=== PATIENT | male | born 1950 | race African-American/Black ===

== ENCOUNTER 2018-09-26 17:38 | Emergency (ER) | payer MEDICARE, OTHER ==
[~2018-09-26] VITALS: Ht 180.3 cm; Wt 55.0 kg
[~2018-09-26 17:38] MED LIST: ABAC1TAB15 PO; ALBU17AE16 IH; ALBU8HFA IH; AMLO-511 PO; ASCO500 PO; CYAN100T37 PO; FLUC200T PO; LEVAHFA IH; MONT10TA21 PO; MULT-1290 PO
[2018-09-26] MEDS ORDERED: TAMS0.4C32 PO (19:19)
[2018-09-26] MEDS ORDERED: APIX5TAB PO (19:19)
[2018-09-26] MEDS ORDERED: SYMB8060 IH (19:19)
[2018-09-26] MEDS ORDERED: IPRATROPIUM BROMIDE 0.5 MG/2.5 ML NEB SOLUTION NEB ONE (19:45)
[2018-09-26] MEDS ORDERED: LEVALBUTEROL HCL 1.25 MG/0.5 ML NEB SOLUTION NEB ONE (19:45)
[2018-09-26] MEDS ORDERED: DEXAMETHASONE SOD PHOS 4 MG/ML 5 ML VIAL IM ONE (19:45)
[2018-09-26 22:01] VITALS: BP 132/78
== END 2018-09-26 22:04 | disposition home or self-care (01) ==
LOC: EMS 17:38
DX: J45.909 Unspecified asthma, uncomplicated (principal); I11.9 Hypertensive heart disease without heart failure; F17.210 Nicotine dependence, cigarettes, uncomplicated; F12.90 Cannabis use, unspecified, uncomplicated
CPT/HCPCS: 71045; 94640; 96372; 99283; J1100

== ENCOUNTER 2019-07-30 01:48 | Emergency (ER) | payer MEDICARE, OTHER ==
[~2019-07-30] VITALS: Ht 182.9 cm; Wt 52.0 kg
[~2019-07-30 01:48] MED LIST changes: -ALBU17AE16 IH; -ALBU8HFA IH; -AMLO-511 PO; +AMLO10TA7 PO; +APIX5TAB PO; -ASCO500 PO; -CYAN100T37 PO; +DRON2.5C19 PO; +FERR-89 PO; -LEVAHFA IH; -MULT-1290 PO; +MULT1TAB70 PO; +RISP1 PO; +SYMB8060 IH; +TAMS-13 PO
[2019-07-30] MEDS ORDERED: 0.9% SODIUM CHLORIDE 5 ML NEB SOLUTION NEB ONE (01:54)
[2019-07-30] MEDS ORDERED: IPRATROPIUM BROMIDE 0.5 MG/2.5 ML NEB SOLUTION NEB ONE ×2 (01:54→02:15)
[2019-07-30] MEDS ORDERED: ALBUTEROL SULFATE 5 MG/ML 20 ML NEB SOLN [BULK] NEB ONE ×2 (01:54→02:15)
[2019-07-30] MEDS ORDERED: AMLO10TA55 PO (02:05)
[2019-07-30] MEDS ORDERED: MethylPREDNISolone SOD SUCC 125 MG/2 ML VIAL IVP ONE (02:15)
[2019-07-30] MEDS ORDERED: HydrALAZINE HCL 20 MG/ML VIAL IVP ONE (02:15)
[2019-07-30] MEDS ORDERED: LORazepam 2 MG/ML VIAL IVP ONE (02:15)
[2019-07-30 02:51] LABS: BASOPHILS % (AUTO) 0.7 % (0.0-2.0); HEMATOCRIT 38.5 % (41-53); LYMPHOCYTES % (AUTO) 28.3 % (22.0-44.0); MEAN CORPUSCULAR HEMOGLOBIN 24.2 pg (26.0-34.0); MEAN CORPUSCULAR HGB CONC 31.2 G/dL (31.0-37.0); MEAN CORPUSCULAR VOLUME 78 fL (80-100); MONOCYTES # (AUTO) 0.7 K/uL (0.1-1.0); MONOCYTES % (AUTO) 9.4 % (2.0-9.0); NEUTROPHILS # (AUTO) 3.9 K/uL (1.8-7.7); NEUTROPHILS % (AUTO) 54.6 % (40.0-70.0); PLATELET COUNT (AUTO) 297 K/uL (150-450); RED BLOOD CELL COUNT(AUTO) 4.96 MIL/uL (4.50-5.90); RED CELL DISTRIBUTION WIDTH 16.9 % (11.5-14.5)
[2019-07-30 03:05] LABS: APPEARANCE,URINE CLEAR (CLEAR); BILIRUBIN,URINE NEGATIVE (NEGATIVE); GLUCOSE, URINE (UA) 100 mg/dL (NEGATIVE); KETONES,URINE NEGATIVE (NEGATIVE); LEUKOCYTE ESTERASE ,URINE NEGATIVE (NEGATIVE); NITRATE,URINE NEGATIVE (NEGATIVE); OCCULT BLOOD,URINE MODERATE (NEGATIVE); PROTEIN,URINE SEE CONFIRM (NEGATIVE); UROBILINOGEN,URINE 0.2 mg/dL (<=1.0)
[2019-07-30 03:21] LABS: ANION GAP 11 mmol/L (8-16); CALCIUM, TOTAL 8.9 mg/dL (8.8-10.5); CARBON DIOXIDE 24 mmol/L (22-29); CHLORIDE 105 mmol/L (98-107); CREATININE 1.21 mg/dL (0.60-1.30); GLOMERULAR FILTR. RATE CALC > 60 mL/min (>60); GLUCOSE,RANDOM 154 mg/dL (70-110); POTASSIUM 4.1 mmol/L (3.5-5.1); SODIUM SERUM 140 mmol/L (136-145); UREA NITROGEN, BLOOD 20 mg/dL (7-18)
[2019-07-30 03:24] LABS: BACTERIA,URINE None Seen /HPF (None Seen); SQUAMOUS EPITHELIAL CELL,UR Rare /LPF (None Seen)
[2019-07-30 03:24] LABS: INR 0.9 (0.9-1.1); PROTHROMBIN TIME 9.4 SEC (9.4-11.6)
[2019-07-30 03:25] LABS: SULFOSALICYLIC ACID,URINE 4+ (Negative)
[2019-07-30 03:39] LABS: B-TYPE NATRIURETIC PEPTIDE 18 pg/mL (0-100)
[2019-07-30 03:45] LABS: ALANINE AMINOTRANSFERASE 15 U/L (12-78); ALBUMIN 3.6 g/dL (3.4-5.0); ALKALINE PHOSPHATASE 129 U/L (46-116); ASPARTATE AMINOTRANSFERASE 22 U/L (15-37); BILIRUBIN,TOTAL 0.1 mg/dL (0.1-1.0); CREATINE KINASE, TOTAL ONLY 781 U/L (39-308); TOTAL PROTEIN, SERUM 8.8 g/dL (6.4-8.2)
[2019-07-30] MEDS ORDERED: 0.9% SODIUM CHLORIDE 10 ML SYRINGE IVP PRN ×2 (04:00→08:15)
[2019-07-30] MEDS ORDERED: ONDANSETRON HCL 4 MG/2 ML VIAL IVP PRN ×2 (04:00→08:15)
[2019-07-30] MEDS ORDERED: ACETAMINOPHEN 325 MG TABLET PO PRN ×2 (04:00→08:15)
[2019-07-30] MEDS ORDERED: ALBUTEROL SULFATE 2.5 MG/0.5 ML NEB SOLUTION NEB SCH ×2 (07:00→14:00)
[2019-07-30] MEDS ORDERED: IPRATROPIUM BROMIDE 0.5 MG/2.5 ML NEB SOLUTION NEB SCH ×2 (07:00→14:00)
[2019-07-30] MEDS ORDERED: AZITHROMYCIN 500 MG/NS 250 ML IV ONE (08:15)
[2019-07-30] MEDS ORDERED: INSULIN LISPRO 100 UNITS/ML SQ PRN (08:15)
[2019-07-30] MEDS ORDERED: ALBUTEROL SULFATE 2.5 MG/0.5 ML NEB SOLUTION NEB PRN (08:15)
[2019-07-30] MEDS ORDERED: IPRATROPIUM BROMIDE 0.5 MG/2.5 ML NEB SOLUTION NEB PRN (08:15)
[2019-07-30] MEDS ORDERED: DEXTROSE 50%-WATER 25 GM/50 ML SYRINGE IVP PRN (08:15)
[2019-07-30] MEDS ORDERED: POTASSIUM CHLORIDE 20 MEQ ER TABLET PO PRN (08:15)
[2019-07-30] MEDS ORDERED: MAGNESIUM SULFATE 2 GM/WATER 50 ML IV PRN (08:15)
[2019-07-30] MEDS ORDERED: MAGNESIUM SULFATE 4 GM/WATER 100 ML IV PRN (08:15)
[2019-07-30] MEDS ORDERED: FERROUS SULFATE 325 MG EC TABLET PO SCH (08:15)
[2019-07-30] MEDS ORDERED: POTASSIUM CHL 10 MEQ/WATER 50 ML IV PRN (08:15)
[2019-07-30] MEDS ORDERED: MAGNESIUM OXIDE 400 MG TABLET PO PRN (08:15)
[2019-07-30] MEDS ORDERED: ZOLPIDEM TARTRATE 5 MG TABLET PO PRN (08:15)
[2019-07-30] MEDS ORDERED: BUDESONIDE/FORMOTEROL FUMARATE 80-4.5 MCG/PUFF 6.9 GM INHALER IH SCH (09:00)
[2019-07-30] MEDS ORDERED: PANTOPRAZOLE SODIUM 40 MG DR TABLET PO SCH (09:00)
[2019-07-30] MEDS ORDERED: APIXABAN 5 MG TABLET PO SCH (09:00)
[2019-07-30] MEDS ORDERED: FLUCONAZOLE 200 MG TABLET PO SCH (09:00)
[2019-07-30] MEDS ORDERED: TAMSULOSIN HCL 0.4 MG CAPSULE PO SCH (09:00)
[2019-07-30] MEDS ORDERED: MONTELUKAST SODIUM 10 MG TABLET PO SCH (09:00)
[2019-07-30] MEDS ORDERED: RisperiDONE 1 MG TABLET PO SCH (09:00)
[2019-07-30] MEDS ORDERED: MethylPREDNISolone SOD SUCC 40 MG/ML VIAL IVP SCH (09:00)
[2019-07-30] MEDS ORDERED: DOCUSATE SODIUM 100 MG CAPSULE PO SCH (09:00)
[2019-07-30] MEDS ORDERED: AmLODIPine BESYLATE 10 MG TABLET PO SCH (09:00)
[2019-07-30 11:39] VITALS: BP 138/84
[2019-07-30 11:54] LABS: GLUCOSE,POINT OF CARE 117 MG/DL (70-110)
[2019-07-30] MEDS ORDERED: DOLUTEGRAVIR SODIUM 50 MG TABLET PO SCH (15:30)
[2019-07-30] MEDS ORDERED: MULTIVITAMINS, THERAPEUTIC TABLET PO SCH (15:30)
[2019-07-30] MEDS ORDERED: ABACAVIR SULFATE 300 MG TABLET PO SCH (15:30)
[2019-07-31] MEDS ORDERED: CefTRIAXone 1 GM/DEXTROSE 50 ML IV SCH (08:00)
== END 2019-07-30 15:33 | disposition left against medical advice (07) ==
LOC: EMS 01:49
DX: J96.91 Respiratory failure, unspecified with hypoxia (principal); R80.9 Proteinuria, unspecified; I10 Essential (primary) hypertension; F10.20 Alcohol dependence, uncomplicated; M19.90 Unspecified osteoarthritis, unspecified site; J44.9 Chronic obstructive pulmonary disease, unspecified; Z86.718 Personal history of other venous thrombosis and embolism; M81.0 Age-related osteoporosis without current pathological fracture; Z98.890 Other specified postprocedural states; Z79.899 Other long term (current) drug therapy; F17.210 Nicotine dependence, cigarettes, uncomplicated; F12.90 Cannabis use, unspecified, uncomplicated
CPT/HCPCS: 36415; 71045; 80053; 81001; 82040; 82550; 82962; 83880; 84484; 85025; 85610; 85730; 87040; 87086; 93005; 94640; 94644; 94660; 96365; 96374; 96375; 99291; J0456; J2060; J2920; J2930

== ENCOUNTER 2020-04-28 08:46 | Emergency (ER) | payer MEDICARE, OTHER ==
[~2020-04-28] VITALS: Ht 182.9 cm; Wt 56.8 kg
[~2020-04-28 08:46] MED LIST changes: +AMLO-258 PO; -AMLO10TA7 PO; +MONT-35 PO; -MONT10TA21 PO; +MULT-660 PO; -MULT1TAB70 PO; -RISP1 PO; +RISP1TAB27 PO
[2020-04-28] MEDS ORDERED: ACETAMINOPHEN 500 MG TABLET PO ONE (10:30)
[2020-04-28] MEDS ORDERED: HYDROCODONE/ACETAMINOPHEN 5-325 MG TABLET PO ONE (10:45)
[2020-04-28 10:46] VITALS: BP 158/89
== END 2020-04-28 11:17 | disposition home or self-care (01) ==
LOC: EMS 08:54
DX: S52.202A Unspecified fracture of shaft of left ulna, initial encounter for closed fracture (principal); M17.0 Bilateral primary osteoarthritis of knee; J45.909 Unspecified asthma, uncomplicated; I11.9 Hypertensive heart disease without heart failure; F17.210 Nicotine dependence, cigarettes, uncomplicated; F12.90 Cannabis use, unspecified, uncomplicated; W19.XXXA Unspecified fall, initial encounter; Y93.89 Activity, other specified; Y92.89 Other specified places as the place of occurrence of the external cause; Y99.8 Other external cause status
CPT/HCPCS: 73090-TC; 73110-TC; 73562-TC; Z7502; Z7610

== ENCOUNTER 2021-03-15 06:55 | Emergency (ER) | payer MEDICARE, OTHER ==
[~2021-03-15] VITALS: Ht 182.9 cm; Wt 59.1 kg
[~2021-03-15 06:55] MED LIST changes: -RISP1TAB27 PO; +RISP1TAB48 PO
[2021-03-15 07:34] LABS: BASOPHILS % (AUTO) 0.5 % (0.0-2.0); EOSINOPHILS % (AUTO) 0.9 % (1.0-6.0); HEMATOCRIT 41.2 % (41-53); HEMOGLOBIN 13.2 g/dL (13.5-17.5); LYMPHOCYTES # (AUTO) 0.9 K/uL (1.0-4.8); LYMPHOCYTES % (AUTO) 16.6 % (22.0-44.0); MEAN CORPUSCULAR HEMOGLOBIN 25.1 pg (26.0-34.0); MEAN CORPUSCULAR HGB CONC 32.1 G/dL (31.0-37.0); MEAN CORPUSCULAR VOLUME 78 fL (80-100); MONOCYTES # (AUTO) 0.3 K/uL (0.1-1.0); MONOCYTES % (AUTO) 5.9 % (2.0-9.0); NEUTROPHILS # (AUTO) 4.3 K/uL (1.8-7.7); NEUTROPHILS % (AUTO) 76.1 % (40.0-70.0); PLATELET COUNT (AUTO) 258 K/uL (150-450); RED BLOOD CELL COUNT(AUTO) 5.27 MIL/uL (4.50-5.90); RED CELL DISTRIBUTION WIDTH 14.7 % (11.5-14.5)
[2021-03-15 07:42] LABS: ANION GAP 9 mmol/L (8-16); CARBON DIOXIDE 28 mmol/L (22-29); CHLORIDE 101 mmol/L (98-107); GLUCOSE,RANDOM 101 mg/dL (70-110); POTASSIUM 3.6 mmol/L (3.5-5.1); SODIUM SERUM 138 mmol/L (136-145); UREA NITROGEN, BLOOD 9 mg/dL (7-18)
[2021-03-15 07:45] LABS: GLOMERULAR FILTR. RATE CALC > 60 mL/min (>60)
[2021-03-15] MEDS ORDERED: SODIUM CHLORIDE 0.9% 1,000 ML IV ONE (07:45)
[2021-03-15] MEDS ORDERED: ONDANSETRON HCL 4 MG/2 ML VIAL IVP ONE (07:45)
[2021-03-15] MEDS ORDERED: PB/HYOSCY/ATR/SCOP/LIDO/MAALOX 55 ML BOTTLE PO ONE (07:45)
[2021-03-15 07:48] LABS: INR 0.9 (0.9-1.1)
[2021-03-15 08:03] LABS: B-TYPE NATRIURETIC PEPTIDE 51 pg/mL (0-100)
[2021-03-15 08:07] LABS: ALANINE AMINOTRANSFERASE 22 U/L (12-78); ALBUMIN 3.8 g/dL (3.4-5.0); ALKALINE PHOSPHATASE 135 U/L (46-116); ASPARTATE AMINOTRANSFERASE 11 U/L (15-37); BILIRUBIN,TOTAL 0.3 mg/dL (0.1-1.0); CREATINE KINASE, TOTAL ONLY 351 U/L (39-308); LIPASE 148 U/L (73-393); TOTAL PROTEIN, SERUM 8.5 g/dL (6.4-8.2)
[2021-03-15 08:34] LABS: COVID AG,FIA SOURCE NASOPHARYNGEAL
[2021-03-15] MEDS ORDERED: IOHEXOL 350 MG/ML 100 ML VIAL ONE (08:52)
[2021-03-15] MEDS ORDERED: SODIUM CHLORIDE 0.9% 100 ML ONE (08:53)
[2021-03-15] MEDS ORDERED: IOHEXOL 350 MG/ML 150 ML VIAL ONE (08:53)
[2021-03-15 10:47] LABS: APPEARANCE,URINE CLEAR (CLEAR); BILIRUBIN,URINE NEGATIVE (NEGATIVE); GLUCOSE, URINE (UA) NEGATIVE (NEGATIVE); KETONES,URINE TRACE mg/dL (NEGATIVE); LEUKOCYTE ESTERASE ,URINE NEGATIVE (NEGATIVE); NITRATE,URINE NEGATIVE (NEGATIVE); OCCULT BLOOD,URINE MODERATE (NEGATIVE); PROTEIN,URINE POS 1+ (NEGATIVE); UROBILINOGEN,URINE 0.2 mg/dL (<=1.0)
[2021-03-15 10:50] VITALS: BP 169/96
[2021-03-15 10:52] LABS: AMPHET/METH SCREEN,URINE NEGATIVE (NEGATIVE); BARBITURATE SCREEN, URINE NEGATIVE (NEGATIVE); BENZODIAZEPINES SCREEN,URINE NEGATIVE (NEGATIVE); CANNABINOID SCREEN,URINE POSITIVE (NEGATIVE); COCAINE SCREEN,URINE POSITIVE (NEGATIVE); METHADONE SCREEN, URINE NEGATIVE (NEGATIVE); OPIATE SCREEN,URINE NEGATIVE (NEGATIVE)
[2021-03-15 10:56] LABS: BACTERIA,URINE None Seen /HPF (None Seen); RBC,URINE None Seen /HPF (0-2); SQUAMOUS EPITHELIAL CELL,UR Few /LPF (None Seen); WBC,URINE 0-2 /HPF (0-5)
[2021-03-15 11:04] LABS: PHENCYCLIDINE SCREEN,URINE NEGATIVE (NEGATIVE)
== END 2021-03-15 10:51 | disposition left against medical advice (07) ==
LOC: EMS 06:56
DX: R10.9 Unspecified abdominal pain (principal); R16.0 Hepatomegaly, not elsewhere classified; R11.2 Nausea with vomiting, unspecified; J45.909 Unspecified asthma, uncomplicated; I11.9 Hypertensive heart disease without heart failure; F17.210 Nicotine dependence, cigarettes, uncomplicated; F12.90 Cannabis use, unspecified, uncomplicated; Z20.822 Contact with and (suspected) exposure to COVID-19; Z79.899 Other long term (current) drug therapy
CPT/HCPCS: 36415; 71045; 74177; 80053; 80307; 81001; 82550; 83690; 83880; 84484; 85025; 85610; 85730; 87426; 93005; 96361; 96374; 99285; A9575; J2405; J7030; J7050

== ENCOUNTER 2021-11-07 15:46 | Emergency (ER) | payer MEDICARE, OTHER ==
[~2021-11-07] VITALS: Ht 182.9 cm; Wt 54.5 kg
[~2021-11-07 15:46] MED LIST changes: -FLUC200T PO; +FLUC200T85 PO
[2021-11-07] MEDS ORDERED: SODI650T33 PO (16:20)
[2021-11-07] MEDS ORDERED: ISOS30TA92 PO (16:20)
[2021-11-07] MEDS ORDERED: THIA100T80 PO (16:20)
[2021-11-07] MEDS ORDERED: AUD NEB (16:20)
[2021-11-07] MEDS ORDERED: HYDR-4808 PO (16:20)
[2021-11-07] MEDS ORDERED: TIOT185 IH (16:20)
[2021-11-07] MEDS ORDERED: FLUT1AER IH (16:20)
[2021-11-07] MEDS ORDERED: HYDROmorphone 2 MG/ML VIAL IM ONE (16:45)
[2021-11-07] MEDS ORDERED: ONDANSETRON HCL 4 MG/2 ML VIAL IM ONE (16:45)
[2021-11-07] MEDS ORDERED: BARIUM SULFATE 0.1% SUSPENSION 450 ML BOTTLE PO ONE (16:45)
[2021-11-07] MEDS ORDERED: TIOT4MIS2 IH (16:51)
[2021-11-07 16:56] LABS: HEMATOCRIT 35.1 % (41-53); HEMOGLOBIN 11.3 g/dL (13.5-17.5); LYMPHOCYTES % (AUTO) 21.8 % (22.0-44.0); MEAN CORPUSCULAR HEMOGLOBIN 24.5 pg (26.0-34.0); MEAN CORPUSCULAR HGB CONC 32.1 G/dL (31.0-37.0); MEAN CORPUSCULAR VOLUME 76 fL (80-100); MONOCYTES # (AUTO) 0.4 K/uL (0.1-1.0); MONOCYTES % (AUTO) 9.3 % (2.0-9.0); NEUTROPHILS # (AUTO) 2.9 K/uL (1.8-7.7); NEUTROPHILS % (AUTO) 61.9 % (40.0-70.0); PLATELET COUNT (AUTO) 322 K/uL (150-450); RED CELL DISTRIBUTION WIDTH 15.3 % (11.5-14.5)
[2021-11-07 17:12] LABS: ANION GAP 8 mmol/L (8-16); CALCIUM, TOTAL 9.5 mg/dL (8.8-10.5); CARBON DIOXIDE 26 mmol/L (22-29); CHLORIDE 104 mmol/L (98-107); CREATININE 1.26 mg/dL (0.60-1.30); GLOMERULAR FILTR. RATE CALC > 60 mL/min (>60); GLUCOSE,RANDOM 106 mg/dL (70-110); POTASSIUM 4.5 mmol/L (3.5-5.1); SODIUM SERUM 138 mmol/L (136-145); UREA NITROGEN, BLOOD 17 mg/dL (7-18)
[2021-11-07 17:24] LABS: ALANINE AMINOTRANSFERASE 19 U/L (12-78); ALBUMIN 3.7 g/dL (3.4-5.0); ALKALINE PHOSPHATASE 140 U/L (46-116); ASPARTATE AMINOTRANSFERASE 11 U/L (15-37); BILIRUBIN,TOTAL 0.2 mg/dL (0.1-1.0); LIPASE 73 U/L (73-393); TOTAL PROTEIN, SERUM 8.8 g/dL (6.4-8.2)
[2021-11-07] MEDS ORDERED: TRAM50TA4 PO (20:54)
[2021-11-07 21:15] VITALS: BP 115/68
== END 2021-11-07 21:29 | disposition home or self-care (01) ==
LOC: EMS 15:52
DX: K80.20 Calculus of gallbladder without cholecystitis without obstruction (principal); R10.11 Right upper quadrant pain; I10 Essential (primary) hypertension; F12.90 Cannabis use, unspecified, uncomplicated; F17.210 Nicotine dependence, cigarettes, uncomplicated; J45.909 Unspecified asthma, uncomplicated; Z79.899 Other long term (current) drug therapy
CPT/HCPCS: 74176; 76700; 80053; 83690; 84484; 85025; 93005; 96372; 99285; J1170; J2405